=== PATIENT | male | born 1950 | race Caucasian/White ===

== ENCOUNTER → 2017-08-17 | Outpatient (CLI) | payer MEDICARE | END | disposition home or self-care (01) | LOC: WOUND 08:32 | PROVIDERS: ATTEND Podiatrist Foot & Ankle Surgery | DX: I87.333 Chronic venous hypertension (idiopathic) with ulcer and inflammation of bilateral lower extremity (principal); L97.422 Non-pressure chronic ulcer of left heel and midfoot with fat layer exposed; L97.211 Non-pressure chronic ulcer of right calf limited to breakdown of skin; G40.909 Epilepsy, unspecified, not intractable, without status epilepticus; G62.9 Polyneuropathy, unspecified; Z87.891 Personal history of nicotine dependence | CPT/HCPCS: 11042; 97597; G0463; 97598; WOU0463 ==

== ENCOUNTER → 2017-08-24 | Outpatient (CLI) | payer MEDICARE | END | disposition home or self-care (01) | LOC: WOUND 09:44 | PROVIDERS: ATTEND Podiatrist Foot & Ankle Surgery | DX: I87.333 Chronic venous hypertension (idiopathic) with ulcer and inflammation of bilateral lower extremity (principal); L97.422 Non-pressure chronic ulcer of left heel and midfoot with fat layer exposed; L97.211 Non-pressure chronic ulcer of right calf limited to breakdown of skin; G40.909 Epilepsy, unspecified, not intractable, without status epilepticus; G62.9 Polyneuropathy, unspecified; Z87.891 Personal history of nicotine dependence | CPT/HCPCS: 11042 ==

== ENCOUNTER → 2017-08-31 | Outpatient (CLI) | payer MEDICARE | END | disposition home or self-care (01) | LOC: WOUND 09:07 | PROVIDERS: ATTEND Podiatrist Foot & Ankle Surgery | DX: I87.333 Chronic venous hypertension (idiopathic) with ulcer and inflammation of bilateral lower extremity (principal); L97.422 Non-pressure chronic ulcer of left heel and midfoot with fat layer exposed; L97.211 Non-pressure chronic ulcer of right calf limited to breakdown of skin; G40.909 Epilepsy, unspecified, not intractable, without status epilepticus; G62.9 Polyneuropathy, unspecified; Z87.891 Personal history of nicotine dependence | CPT/HCPCS: 11042; 97597 ==

== ENCOUNTER → 2017-09-07 | Outpatient (CLI) | payer MEDICARE | END | disposition home or self-care (01) | LOC: WOUND 08:56 | PROVIDERS: ATTEND Podiatrist Foot & Ankle Surgery | DX: I87.312 Chronic venous hypertension (idiopathic) with ulcer of left lower extremity (principal); L97.422 Non-pressure chronic ulcer of left heel and midfoot with fat layer exposed; L97.221 Non-pressure chronic ulcer of left calf limited to breakdown of skin; G40.909 Epilepsy, unspecified, not intractable, without status epilepticus; G62.9 Polyneuropathy, unspecified; Z87.891 Personal history of nicotine dependence | CPT/HCPCS: 11042; 97597 ==

== ENCOUNTER → 2017-09-14 | Outpatient (CLI) | payer MEDICARE | END | disposition home or self-care (01) | LOC: WOUND 08:06 | PROVIDERS: ATTEND Podiatrist Foot & Ankle Surgery | DX: I87.312 Chronic venous hypertension (idiopathic) with ulcer of left lower extremity (principal); L97.422 Non-pressure chronic ulcer of left heel and midfoot with fat layer exposed; L97.221 Non-pressure chronic ulcer of left calf limited to breakdown of skin; G40.909 Epilepsy, unspecified, not intractable, without status epilepticus; G62.9 Polyneuropathy, unspecified; Z87.891 Personal history of nicotine dependence | CPT/HCPCS: 97597 ==

== ENCOUNTER → 2017-09-21 | Outpatient (CLI) | payer MEDICARE | END | disposition home or self-care (01) | LOC: WOUND 07:52 | PROVIDERS: ATTEND Podiatrist Foot & Ankle Surgery | DX: I87.332 Chronic venous hypertension (idiopathic) with ulcer and inflammation of left lower extremity (principal); L97.422 Non-pressure chronic ulcer of left heel and midfoot with fat layer exposed; G90.09 Other idiopathic peripheral autonomic neuropathy; G40.802 Other epilepsy, not intractable, without status epilepticus; Z87.891 Personal history of nicotine dependence | CPT/HCPCS: 11042 ==

== ENCOUNTER → 2017-09-28 | Outpatient (CLI) | payer MEDICARE | END | disposition home or self-care (01) | LOC: WOUND 10:58 | PROVIDERS: ATTEND Podiatrist Foot & Ankle Surgery | DX: I87.332 Chronic venous hypertension (idiopathic) with ulcer and inflammation of left lower extremity (principal); L97.422 Non-pressure chronic ulcer of left heel and midfoot with fat layer exposed; G90.09 Other idiopathic peripheral autonomic neuropathy; G62.9 Polyneuropathy, unspecified; G40.802 Other epilepsy, not intractable, without status epilepticus; Z87.891 Personal history of nicotine dependence | CPT/HCPCS: 97597 ==

== ENCOUNTER → 2017-09-28 | Outpatient (CLI) | payer MEDICARE | END | disposition home or self-care (01) | LOC: CVU 11:57 | PROVIDERS: ATTEND Podiatrist Foot & Ankle Surgery | DX: L97.422 Non-pressure chronic ulcer of left heel and midfoot with fat layer exposed (principal); I87.332 Chronic venous hypertension (idiopathic) with ulcer and inflammation of left lower extremity; I10 Essential (primary) hypertension | CPT/HCPCS: 93922; 93925; 93970 ==

== ENCOUNTER → 2017-10-05 | Outpatient (CLI) | payer MEDICARE | END | disposition home or self-care (01) | LOC: WOUND 08:59 | PROVIDERS: ATTEND Podiatrist Foot & Ankle Surgery | DX: I87.331 Chronic venous hypertension (idiopathic) with ulcer and inflammation of right lower extremity (principal); L97.422 Non-pressure chronic ulcer of left heel and midfoot with fat layer exposed; G40.909 Epilepsy, unspecified, not intractable, without status epilepticus; G90.09 Other idiopathic peripheral autonomic neuropathy; N40.1 Benign prostatic hyperplasia with lower urinary tract symptoms; Z87.891 Personal history of nicotine dependence | CPT/HCPCS: 97597 ==

== ENCOUNTER → 2017-10-12 | Outpatient (CLI) | payer MEDICARE | END | disposition home or self-care (01) | LOC: WOUND 08:08 | PROVIDERS: ATTEND Podiatrist Foot & Ankle Surgery | DX: I87.332 Chronic venous hypertension (idiopathic) with ulcer and inflammation of left lower extremity (principal); L97.422 Non-pressure chronic ulcer of left heel and midfoot with fat layer exposed; L97.221 Non-pressure chronic ulcer of left calf limited to breakdown of skin; G62.89 Other specified polyneuropathies; G40.802 Other epilepsy, not intractable, without status epilepticus; Z87.891 Personal history of nicotine dependence | CPT/HCPCS: 97597 ==

== ENCOUNTER → 2017-10-16 | Outpatient (CLI) | payer MEDICARE | END | disposition home or self-care (01) | LOC: WOUND 08:00 | PROVIDERS: ATTEND Internal Medicine | DX: L97.521 Non-pressure chronic ulcer of other part of left foot limited to breakdown of skin (principal); S80.822D Blister (nonthermal), left lower leg, subsequent encounter; G62.89 Other specified polyneuropathies; G40.802 Other epilepsy, not intractable, without status epilepticus; Z87.891 Personal history of nicotine dependence; X58.XXXD Exposure to other specified factors, subsequent encounter | CPT/HCPCS: 29581 ==

== ENCOUNTER → 2017-10-19 | Outpatient (CLI) | payer MEDICARE | END | disposition home or self-care (01) | LOC: WOUND 08:47 | PROVIDERS: ATTEND Podiatrist Foot & Ankle Surgery | DX: I87.313 Chronic venous hypertension (idiopathic) with ulcer of bilateral lower extremity (principal); L97.422 Non-pressure chronic ulcer of left heel and midfoot with fat layer exposed; L97.221 Non-pressure chronic ulcer of left calf limited to breakdown of skin; G40.909 Epilepsy, unspecified, not intractable, without status epilepticus; G90.09 Other idiopathic peripheral autonomic neuropathy; Z87.891 Personal history of nicotine dependence | CPT/HCPCS: 97597 ==

== ENCOUNTER → 2017-10-26 | Outpatient (CLI) | payer MEDICARE | END | disposition home or self-care (01) | LOC: WOUND 08:27 | PROVIDERS: ATTEND Podiatrist Foot & Ankle Surgery | DX: I87.313 Chronic venous hypertension (idiopathic) with ulcer of bilateral lower extremity (principal); L97.528 Non-pressure chronic ulcer of other part of left foot with other specified severity; L97.828 Non-pressure chronic ulcer of other part of left lower leg with other specified severity; S80.821A Blister (nonthermal), right lower leg, initial encounter; G62.89 Other specified polyneuropathies; G40.909 Epilepsy, unspecified, not intractable, without status epilepticus; G90.09 Other idiopathic peripheral autonomic neuropathy; Z87.891 Personal history of nicotine dependence; X58.XXXA Exposure to other specified factors, initial encounter; Y93.89 Activity, other specified; Y92.89 Other specified places as the place of occurrence of the external cause; Y99.8 Other external cause status | CPT/HCPCS: G0463; WOU0463 ==